=== PATIENT | female | born 1950 | race Caucasian/White ===

== ENCOUNTER → 2023-11-07 09:22 | Outpatient (REF) | payer MEDICARE, OTHER, SELFPAY | LOC: RAD 09:22 | PROVIDERS: ATTENDING PHYSICIAN Physician Assistant Surgical; FAMILY PHYSICIAN Family Medicine | DX: Z96.652 Presence of left artificial knee joint (principal) | CPT/HCPCS: 78315; A9503 ==

== ENCOUNTER 2023-12-25 09:38 | Inpatient (IN) | payer MEDICARE, OTHER, SELFPAY ==
[2023-11-30 14:12] VITALS: BMI 30.8
[2023-11-30 14:32] LABS: Hematocrit 37.6 % (37.0-47.0); Hemoglobin 13.1 g/dL (12.0-16.0); Mean Corp Hgb Conc. 34.8 g/dL (33.0-37.0); Mean Corpuscular Hgb 30.7 pg (27.0-31.0); Mean Corpuscular Volume 88.1 fL (81.0-99.0); Mean Platelet Volume 8.9 fL (7.4-10.4); Platelet Count 212 10^3/uL (130-400); Red Blood Cell Count 4.27 10^6/uL (4.20-5.40); Red Cell Dist. Width 12.6 % (11.5-14.5); White Blood Cell Count 6.4 10^3/uL (4.8-10.8)
[2023-11-30 14:44] LABS: ALT (SGPT) 20 U/L (0-35); AST (SGOT) 29 U/L (14-36); Albumin 4.1 g/dl (3.5-5.0); Alkaline Phosphatase 82 U/L (38-126); Blood Urea Nitrogen 18 mg/dl (7-17); Calcium 9.6 mg/dl (8.4-10.2); Carbon Dioxide 23 mmol/L (22-30); Chloride 104 mmol/L (98-107); Estimated Creatinine Clearance 67 ml/min; Glucose 113 mg/dl (70-99); Potassium 4.2 mmol/L (3.5-5.1); Sodium 140 mmol/L (135-145); Total Bilirubin 0.4 mg/dl (0.2-1.3); Total Protein 6.3 g/dl (6.3-8.2); eGFR > 60.00
[2023-12-01 09:03] LABS: Glycohemoglobin (HgbA1c) 5.6 % (4.0-5.6)
[2023-12-19 10:09] VITALS: BMI 30.8
[2023-12-25] VITALS (10 sets, daily range): BP systolic 121–154; BP diastolic 64–85; BMI 30.8
[2023-12-25] MEDS: MOBIC 15 MG PO (10:51)
[2023-12-25] MEDS: TYLENOL 650 MG PO ×3 (10:51→21:06)
[2023-12-25] MEDS: BACTROBAN NASAL 1 GRAM NASAL (10:52)
[2023-12-25] MEDS: NORMOSOL-R/PLASMALYTE-A 1000 IV ×2 (10:53→16:20)
--- NOTE | 2023-12-25 14:36 | W.PN.UPDATE ---
Update Note
Progress Note Update
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
- s/p L TKA, 11/2019, by Dr. Pate
DVT prophylaxis - Eliquis at modified dosing, b/l venous foot pumps
- Will resume Eliquis 5 mg PO BID on POD 3 if hemodynamically stable
PAF - monitor on tele
- Continue Flecainide, Metoprolol
- Eliquis as stated above
CKD stage 3 - minimize nephrotoxins as able
GERD - continue PPI
Chronic constipation - will continue home Citrucel upon d/c w/ bowel regimen of Colace and Senna
CAD, non-obstructive
H/o diverticulitis
Fracture of L1 vertebrae
Thyroid cancer, status post thyroidectomy
Post-surgical hypothyroidism
Anxiety
Endometriosis
Remote history of viral hepatitis
Vitamin D deficiency
Osteoporosis
Obesity, BMI 30.8
Has prophylactic Cefadroxil upon d/c
[2023-12-25] MEDS: DILAUDID 0.5 MG IV (15:46)
[2023-12-25] MEDS: ROXICODONE 5 MG PO (16:24)
--- NOTE | 2023-12-25 17:00 | PTCARENOTE ---
Received patient from PACU. Patient snoring, but arousable to verbal stimuli. Left knee dressing with scant amount of drainage, ice applied, call perera in reach.
[2023-12-25] MEDS: PROTONIX 20 MG PO (17:51)
[2023-12-25] MEDS: ZYRTEC 5 MG PO (17:51)
[2023-12-25] MEDS: COMPAZINE 5 MG PO (18:33)
--- NOTE | 2023-12-25 18:36 | PTCARENOTE ---
Patient vomited x2. Compazine given. Family at bedside. more drainage noted on dressing and outlined.
[2023-12-25] MEDS: ANCEF 5 IV (21:02)
[2023-12-25] MEDS: BACTROBAN 2% OINTMENT 1 APPLIC NASAL (21:03)
[2023-12-25] MEDS: ELIQUIS 2.5 MG PO (21:05)
[2023-12-25] MEDS: DECADRON 4 MG PO (21:05)
[2023-12-25] MEDS: COLACE 100 MG PO (21:05)
[2023-12-25] MEDS: VITAMIN D3 (cholecalciferol) 25 MCG PO (21:05)
[2023-12-25] MEDS: TAMBOCOR 100 MG PO (21:05)
[2023-12-25] MEDS: PEPCID 40 MG PO (21:06)
[2023-12-25] MEDS: SENOKOT 17.2 MG PO (21:06)
[2023-12-26] MEDS: TYLENOL 650 MG PO ×4 (00:45→13:22)
[2023-12-26 03:46] VITALS: BP 119/75
[2023-12-26] MEDS: ANCEF 5 IV (04:39)
[2023-12-26] MEDS: SYNTHROID 137 MCG PO (06:40)
[2023-12-26 07:00] VITALS: BP 128/75
[2023-12-26 08:55] VITALS: BP 132/80
[2023-12-26] MEDS: BACTROBAN 2% OINTMENT 1 APPLIC NASAL (08:56)
[2023-12-26] MEDS: TAMBOCOR 100 MG PO (08:59)
[2023-12-26] MEDS: DECADRON 4 MG PO (08:59)
[2023-12-26] MEDS: VITAMIN D3 (cholecalciferol) 25 MCG PO (08:59)
[2023-12-26] MEDS: COLACE 100 MG PO (08:59)
[2023-12-26] MEDS: TOPROL XL 25 MG PO (08:59)
[2023-12-26] MEDS: SENOKOT 17.2 MG PO (08:59)
[2023-12-26] MEDS: PROTONIX 20 MG PO (08:59)
[2023-12-26] MEDS: ELIQUIS PO (09:00)
--- NOTE | 2023-12-26 10:27 | W.PN.ORTHO ---
Today's Communication / Plan
-
Monitor incisional bleeding.
Await PT and OT recs.
D/c possible for later today if bleeding improves.
Assessment
.
Distal Motor Intact: Yes
Dressing:
Saturated dressing this AM. Incisional cleaned w/ saline and additional arleth were placed. Dressing replaced and reinforced w/ ABDs/YOLANDA bandage.
Assessment:
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
- s/p L TKA, 11/2019, by Dr. Pate
DVT prophylaxis - Eliquis at modified dosing, b/l venous foot pumps
- Eliquis held POD 1 AM d/t incisional bleeding -> will resume modified dosing tonight if bleeding improves
- Will resume Eliquis 5 mg PO BID on POD 3 if hemodynamically stable
Post-op incisional bleeding - saturated dressing after walking to bathroom today - additional arleth given/dressing changed and reinforced/TXA
- Non-invasive hgb stable at 12.5 today
- Continue to monitor prior to d/c
Post-op nausea - improving w/ Compazine - Zofran contraindicated w/ Flecainide - will Rx Compazine prn upon d/c
PAF - maintaining NSR on tele
- Continue Flecainide, Metoprolol
- Eliquis as stated above
CKD stage 3 - continue to minimize nephrotoxins as able
GERD - continue PPI
Chronic constipation - will continue home Citrucel upon d/c w/ bowel regimen of Colace and Senna
CAD, non-obstructive
H/o diverticulitis
Fracture of L1 vertebrae
Thyroid cancer, status post thyroidectomy
Post-surgical hypothyroidism
Anxiety
Endometriosis
Remote history of viral hepatitis
Vitamin D deficiency
Osteoporosis
Obesity, BMI 30.8
Has prophylactic Cefadroxil upon d/c
Spoke to patient re: pain management. Given previous side effects w/ Oxycodone and Codeine in past, will switch to Tramadol. Pt feels most comfortable w/ this pain medication
Plan
.
Surgery / Date: Revision of L TKA w/ Dr Pate 12/25/23
DVT Prophylaxis: Other (Eliquis )
Activity:
Out of bed.
PT/OT
Discharge Plan: Home w/ Outpatient PT
Subjective
.
.:
Patient resting comfortably in her chair.
L knee pain well controlled w/ minimal pain meds.
Post-op incisional bleeding - TXA ordered, received additional arleth.
Denies any other new significant complaints.
Vital Signs and Labs
.
Vital Signs and Labs:
Lab Results
11/30/23 14:11
11/30/23 14:11
Temp Pulse Resp BP Pulse Ox
97.9 F 86 18 128/75 95
12/26/23 07:00 12/26/23 07:00 12/26/23 07:00 12/26/23 07:00 12/26/23 07:00
Non-invasive Hgb result: 12.5
Physical Exam
-
HEENT: No pallor, cyanosis, or jaundice. Throat clear.
NECK: Supple. No JVD.
RESPIRATORY: Lungs clear to auscultation.
CVS: S1, S2 normal. RRR.�
ABDOMEN: Soft, non-tender. No distension.
EXTREMITIES: Expected post-surgical L knee edema. Strength equal, no calf pain with palpation/dorsiflexion. Calves soft.
CONDENSER WINDER: AOx3. No focal deficits. laboratory inspector grossly intact
[2023-12-26 11:00] VITALS: BP 124/63
[2023-12-26] MEDS: CYKLOKAPRON 1300 MG PO (11:14)
--- NOTE | 2023-12-26 11:16 | CM ---
Reviewed the chart notes and spoke with the patient at the bedside. The patient resides alone in a two story home with five steps to enter. The patient resides on the first level with master bedroom and complete bath. The patient has a rollator,
cane, raised toilet seat, and grab bars in shower. The patient has no had VN or SNF in the past. The patient confirmed her pharmacy of choice is [facility]. The patient has made arrangements for someone to take her to outpatient
therapy. CM continues to be available to patient/family and is monitoring medical plan for needs at discharge.
Plan: Discharge to home when medically stable. Outpatient therapy has been arranged by the patient.
[2023-12-26 13:09] VITALS: BP 127/65; PULSE 71; O2SAT 98
--- NOTE | 2023-12-26 13:25 | W.PN.UPDATE ---
Update Note
Progress Note Update
Assessed dressing after working w/ PT today.
Dressing remaining C/D/I after additional arleth, YOLANDA wrap, and TXA today.
YOLANDA wrap can be removed prior to d/c.
Given significant improvement in incisional bleeding, pt can be d/c today after OT.
Pt eager to go home and begin outpatient PT.
Eliquis to be resumed at modified dose tonight.
--- NOTE | 2023-12-26 13:28 | W.DS.TRANS ---
DC Summary - Patient Assessment Coordinator
-
Discharge Instructions:
Sleep Apnea Risk Intermediate
Discharge Diagnosis/Procedures Mechanical failure of L TKA s/p Revision of L
TKA w/ Dr Pate 12/25/23
Diet Regular
Activity As tolerated,With Walker
Driving Restrictions Not until seen by your Dr
Bathing Restrictions OK to Shower
Other Services PT
Wound Care Dressing to be removed 1 week post-op.
Instructions:
Stand-Alone Forms: Total Hip/Knee Replacement D/C
Changes to Home Medications: Yes
Discharge Medications:
DC Medications w/original date entered in [facility]
cholecalciferol (vitamin D3) 25 mcg (1,000 unit) tablet 1,000 units PO BID Supplement 11/21/19
flecainide 100 mg tablet 100 mg PO Q12 Arrhythmia 11/21/19
levothyroxine 137 mcg tablet (Synthroid) 137 mcg PO DAILY@0700 Thyroid 11/21/19
apixaban 5 mg tablet (Eliquis) 5 mg PO BID Blood clot prevention/tx 12/03/19
conjugated estrogens 0.625 mg/gram vaginal cream (Premarin) 0.312 mg vaginal DIRECTED 05/24/22
famotidine 40 mg tablet (Pepcid) 40 mg PO HS Gastrointestinal Issue 05/24/22
metoprolol succinate 25 mg capsule sprinkle, ext. release 24 hr 25 mg PO DAILY Heart Disease/Condition 05/24/22
triamcinolone acetonide 55 mcg nasal spray aerosol (Nasacort) 1 spray intranasal HS 05/24/22
calcium carbonate (Calcium 600) 600 mg PO BID Supplement 12/19/23
dextran 70-hypromellose eye drops in a dropperette (Artificial Tears (PF) drops in a dropperette) 1 drp ophthalmic (eye) DAILY 12/19/23
levocetirizine 5 mg tablet (Xyzal) 5 mg PO QPM Allergies 12/19/23
methylcellulose (with sugar) oral powder (Citrucel (sucrose) oral powder) 1 tbsp PO DAILY 12/19/23
multivitamin 1 tab PO DAILY Supplement 12/19/23
mupirocin 2 % topical ointment 1 applic topical BID 12/19/23
omeprazole 20 mg tablet,delayed release 20 mg PO DAILY Gastrointestinal Issue 12/19/23
zoledronic acid 5 mg/100 mL in mannitol 5 %-water intravenous piggybck (Reclast) 5 mg IV DIRECTED 12/19/23
acetaminophen 325 mg tablet 650 mg (2 x 325 mg) PO Q4HWA #60 tabs 12/26/23
apixaban 2.5 mg tablet (Eliquis) 2.5 mg PO BID #3 tabs 12/26/23
dexamethasone 4 mg tablet 4 mg PO Q12H Anti-inflammatory #5 tabs 12/26/23
docusate sodium 100 mg capsule 100 mg PO BID #30 caps 12/26/23
prochlorperazine maleate 5 mg tablet 5 mg PO Q8HPRN PRN nausea/vomiting #30 tabs 12/26/23
sennosides 8.6 mg tablet (Senna Laxative) 17.2 mg (2 x 8.6 mg) PO BID #30 tabs 12/26/23
tramadol 50 mg tablet 50 - 100 mg (1 - 2 x 50 mg) PO Q6H PRN moderate-severe pain #30 tabs 12/26/23
Home Medication Changes
acetaminophen 325 mg tablet 650 mg (2 x 325 mg) PO Q4HWA #60 tabs 12/26/23
apixaban 2.5 mg tablet (Eliquis) 2.5 mg PO BID #3 tabs 12/26/23 - then resume 5 mg PO BID
dexamethasone 4 mg tablet 4 mg PO Q12H Anti-inflammatory #5 tabs 12/26/23
docusate sodium 100 mg capsule 100 mg PO BID #30 caps 12/26/23
prochlorperazine maleate 5 mg tablet 5 mg PO Q8HPRN PRN nausea/vomiting #30 tabs 12/26/23
sennosides 8.6 mg tablet (Senna Laxative) 17.2 mg (2 x 8.6 mg) PO BID #30 tabs 12/26/23
tramadol 50 mg tablet 50 - 100 mg (1 - 2 x 50 mg) PO Q6H PRN moderate-severe pain #30 tabs 12/26/23
Pending Results: No
[2023-12-26] MEDS: FLUAD (65 yr+) 2024-2025 FORMULA 0.5 ML IM (14:52)
[2023-12-26 15:00] VITALS: BP 124/62
[2023-12-26] MEDS: TYLENOL PO (16:15)
--- NOTE | 2023-12-26 20:22 | W.PN.UPDATE ---
Update Note
Progress Note Update
Late entry ~11a
Received TT message that patient's dressing needed attention. POD#1 Left TKA revision for aseptic loosening ([place]). Aquacel dressing taken down. Multiple areas of incision oozing. Incision cleaned with Betadine. 8 additional arleth provided. TXA
provided. New aquacel applied with hien wrap compression. Patient was later discharged and will follow up as scheduled.
== END 2023-12-26 16:45 | disposition home or self-care (01) | DRG 468 ==
LOC: 2 SOUTH 09:38
PROVIDERS: ADMITTING PHYSICIAN Specialist; FAMILY PHYSICIAN Family Medicine
PROC: 0SRW0J9 Replacement of Left Knee Joint, Tibial Surface with Synthetic Substitute, Cemented, Open Approach (ICD-10-PCS; 2023-12-25)
PROC: 0SPW0JZ Removal of Synthetic Substitute from Left Knee Joint, Tibial Surface, Open Approach (ICD-10-PCS; 2023-12-25)
DX: T84.033A Mechanical loosening of internal left knee prosthetic joint, initial encounter (principal); E03.9 Hypothyroidism, unspecified; E66.9 Obesity, unspecified; Z68.33 Body mass index [BMI] 33.0-33.9, adult; Y79.2 Prosthetic and other implants, materials and accessory orthopedic devices associated with adverse incidents; M17.12 Unilateral primary osteoarthritis, left knee; I48.91 Unspecified atrial fibrillation; Z79.01 Long term (current) use of anticoagulants; Z79.899 Other long term (current) drug therapy; Z88.5 Allergy status to narcotic agent; Z88.2 Allergy status to sulfonamides; Z88.8 Allergy status to other drugs, medicaments and biological substances; Z87.81 Personal history of (healed) traumatic fracture
CPT/HCPCS: 36415; 73560; 80053; 83036; 85027; 86850; 86900; 86901; 87070; 90662; 97116; 97162; 97166; 97530; 97535; C1713; C1762; C1776; G0008